=== PATIENT | female | born 1980 | race American Indian/Alaskan Native ===

== ENCOUNTER 2017-07-22 15:53 | Outpatient (CLI) | payer BC, OTHER | END 2017-07-22 15:54 | disposition home or self-care (01) | LOC: LABHHL 15:53 | PROVIDERS: ATTEND Surgery | DX: N63 Unspecified lump in breast (principal) | CPT/HCPCS: 88305 ==

== ENCOUNTER 2021-02-04 09:05 | Outpatient (CLI) | payer BC ==
--- NOTE | 2021-02-04 10:32 | Ultrasound Report ---
ULTRASOUND BREAST LEFT LIMITED, 02/04/2021 CLINICAL INFORMATION / INDICATION: BENIGN MASS OF BREAST D24.2. TECHNIQUE: Targeted ultrasound evaluation was performed of the area of interest. COMPARISON: Prior mammogram 07/28/2020 and left breast ultrasound 07/04/2017 FINDINGS: Redemonstration of an oval circumscribed hypoechoic mass in the left breast 3:00 position located 3 c m from the nipple, currently measuring up to 1.1 x 0.9 x 0.3 cm. The mass is parallel. No internal va scularity is demonstrated. This is not significantly changed compared with prior study in 2017 and is considered benign. IMPRESSION: 1. An oval circumscribed hypoechoic mass in the left breast is not significantly changed compared wit h prior study in 2017 and is considered benign, most compatible with a fibroadenoma. No suspicious so nographic abnormality identified. Follow up recommendation: Back to schedule. BI-RADS Category 2: Benign. A normal or "negative" report should not preclude biopsy or follow-up of a clinically suspicious find ing. Signer Name: Apple Mariano MD Signed: 02/04/2021 10:28 AM Workstation Name: [id number]
== END 2021-02-04 09:06 | disposition home or self-care (01) ==
LOC: SPVWC 09:05
PROVIDERS: ATTEND Surgery
DX: N63.21 Unspecified lump in the left breast, upper outer quadrant (principal); D24.2 Benign neoplasm of left breast

== ENCOUNTER 2021-08-14 08:10 | Outpatient (CLI) | payer BC ==
--- NOTE | 2021-08-14 09:09 | Mammography Report ---
DIGITAL SCREENING MAMMOGRAM WITH CAD, 08/14/2021 CLINICAL INFORMATION / INDICATION: Routine screening mammography. TECHNIQUE: Digital bilateral 2D mammography was obtained in the craniocaudal and mediolateral obliqu e projections. This examination was interpreted with the benefit of Computer-Aided Detection analysis . COMPARISON: Prior mammograms 07/28/2020 and 07/23/2019 FINDINGS: Breast Density: There are scattered areas of fibroglandular density. No dominant mass, suspicious calcifications, or architectural distortion in either breast. There is a stable biopsy clip seen in the right breast and a stable benign-appearing nodule in the le ft breast. There has been no significant change compared with the prior examinations. IMPRESSION: No mammographic evidence of malignancy. Follow up recommendation: Routine yearly BI-RADS Category 2: Benign. A "normal" or negative report should not discourage follow up or biopsy of a clinically significant f inding. A written summary of these findings will be mailed to the patient. The patient will be entered into a mammography reporting system which will generate a reminder letter for the patient's next appointmen t at the appropriate interval. The [employer] recommends yearly mammograms starting at age 40 and continuing as l zelalem as a woman is in good health. Breast MRI is recommended for women with an approximate 20-25% or greater lifetime risk of breast cancer, including women with a strong family history of breast or ova jeb cancer or who have been treated for Hodgkin's disease. Signer Name: Apple Mariano MD Signed: 08/14/2021 9:05 AM Workstation Name: [id number]
== END 2021-08-14 08:11 | disposition home or self-care (01) ==
LOC: SPVWC 08:10
PROVIDERS: ATTEND Surgery
DX: Z12.31 Encounter for screening mammogram for malignant neoplasm of breast (principal); N64.89 Other specified disorders of breast
CPT/HCPCS: 77067